=== PATIENT | male | born 1955 ===

== ENCOUNTER 2018-05-04 22:17 | Emergency (ER) | payer BC ==
--- NOTE | 2018-05-04 22:21 | PDOC ---
History of Present Illness - General History Source: Patient Exam Limitations: No Limitations - History of Present Illness Initial Comments: 05/04/18 22:52 The patient is a 63 year old male, with a significant PMH of diabetes, who presents to the emergency department complaining of vertigo that began tonight. The patient states he was eating at a restaurant when he suddenly felt dizzy and nauseous . He reports 1 episode of vomiting, non bilious and non bloody in nature. The patient notes vomit is exacerbated with positional changes, no alleviating factors indicated. He also mentions having a head cold a few days ago. The patient denies chest pain, shortness of breath,and headache. Denies fever, chills, diarrhea and constipation. Denies dysuria, frequency, urgency and hematuria. PAST MEDICAL HISTORY: no significant history PAST SURGICAL HISTORY: no significant history FAMILY HISTORY: no pertinent history SOCIAL HISTORY: Pt lives with family and is employed. MEDICATIONS: reviewed ALLERGIES: As per nursing notes Adult ROS General: No fevers or chills, no weakness, no weight loss HEENT: No change in vision. No sore throat,. No ear pain CardioVascular: No chest pain or shortness of breath Respiratory:No cough, or wheezing. Gastrointestinal: + nausea +vomiting. No diarrhea or constipation, No rectal bleeding Genitourinary: No dysuria, hematuria, or frequency Musculoskeletal: No joint or muscle pain or swelling Neurologic: +Vertigo. No headache, or loss of consciousness Psychiatric: nor depression Skin: No rashes or easy bruising Endocrine: no increased thirst or abnormal weight change Allergic: no skin or latex allergy All other systems reviewed and normal Adult Exam: General:+ Moderate distress and vomiting. Well-nourished well-developed individual. HEENT: Throat: Normal, tonsils normal, no erythema or exudate Neck: Supple, no meningeal signs, no lymphadenopathy Eyes::Pupils equal reactive and round, extraocular motion intact Chest: Nontender to palpation Cardiac: S1-S2 normal, regular rate and rhythm, no murmurs rubs or gallops Respiratory: Lungs clear to auscultation bilateral Abdomen: Soft, nondistended, normal bowel sounds, nontender to palpation diffusely Extremities: Warm, dry, no cyanosis, clubbing, or edema Skin: No rashes Neuro: Alert and oriented x3, nonfocal exam, grossly intact. Psych: Normal mood and affect <Cristopher,Aiswarya - Last Filed: 05/04/18 22:52> - General History Source: Patient Exam Limitations: No Limitations - History of Present Illness Initial Comments: 05/04/18 22:47 This is a 63-year-old male who comes in complaining of acute onset of vertigo after eating dinner this evening. Patient says he has had a recent upper respiratory/head cold. Patient denies any tinnitus. Patient denies any fevers or chills. Patient denies any abdominal pain or diarrhea. Patient denies history of similar symptoms in the past. Patient in moderate distress here in the emergency department secondary to vomiting and vertigo. Workup initiated including CBC, comp, EKG and cardiac workup, head CT. Patient given Zofran and meclizine. Will reassess and review results of workup 05/04/18 23:37 Patient's CAT scan was negative for any acute intracranial pathology He feels much better with the meclizine and Zofran discharged home will follow-up with his primary care doctor <Ron Way I - Last Filed: 05/04/18 23:39> - General Chief Complaint: Nausea/Vomiting Stated Complaint: VOMITING AFTER EATING/DIZZY Time Seen by Provider: 05/04/18 22:20 Past History <Jessica Nicholas - Last Filed: 05/04/18 22:52> <Ron Way I - Last Filed: 05/04/18 23:39> - Past Medical History Allergies/Adverse Reactions: Allergies Allergy/AdvReac Type Severity Reaction Status Date / Time No Known Allergies Allergy Verified 05/04/18 22:37 Home Medications: Ambulatory Orders Meclizine HCl [Antivert -] 12.5 mg PO QID #28 tablet 05/04/18 Ondansetron [Zofran *Odt*] 8 mg SL TID PRN #12 od.tablet 05/04/18 *Physical Exam - Vital Signs Last Vital Signs Temp Pulse Resp BP Pulse Ox 97.9 F 115 H 20 128/83 95 05/04/18 22:38 05/04/18 22:38 05/04/18 22:38 05/04/18 22:38 05/04/18 22:38 <Jessica Nicholas - Last Filed: 05/04/18 22:52> Moderate Sedation - Procedure Monitoring Vital Signs: Procedure Monitoring Vital Signs Temperature 97.9 F 05/04/18 22:38 Pulse Rate 115 H 05/04/18 22:38 Respiratory Rate 20 05/04/18 22:38 Blood Pressure 128/83 05/04/18 22:38 O2 Sat by Pulse Oximetry (%) 95 05/04/18 22:38 <Jessica Nicholas - Last Filed: 05/04/18 22:52> ED Treatment Course - Medications Given in the ED: ED Medications Discontinued Medications Generic Name Dose Route Start Last Admin Trade Name Freq PRN Reason Stop Dose Admin Ondansetron HCl 8 mg 05/04/18 22:33 05/04/18 22:42 Zofran Injection IVPB 05/04/18 22:34 8 mg ONCE ONE Administration <Jessica Nicholas - Last Filed: 05/04/18 22:52> - LABORATORY CBC & Chemistry Diagram: 05/04/18 22:38 05/04/18 22:38 <Ron [address] I - Last Filed: 05/04/18 23:39> *DC/Admit/Observation/Transfer - Attestations Scribe Attestion: 05/04/18 22:53 Documentation prepared by Jessica Nicholas, acting as medical assistant float for Ron Way MD. <Jessica Nicholas - Last Filed: 05/04/18 22:52> - Discharge Dispostion Decision to Admit order: No <Ron Way I - Last Filed: 05/04/18 23:39> Diagnosis at time of Disposition: Vertigo - Discharge Dispostion Disposition: HOME Condition at time of disposition: Stable - Prescriptions Prescriptions: Meclizine HCl [Antivert -] 12.5 mg PO QID #28 tablet Ondansetron [Zofran *Odt*] 8 mg SL TID PRN #12 od.tablet PRN Reason: Nausea - Patient Instructions Printed Discharge Instructions: DI for Vertigo Additional Instructions: For the nausea U can take Zofran 1 tablet as often as 3 times a day. The tablet dissolve under your tongue. For the spinning sensation/vertigo take meclizine 1 tablet every 4 hours if needed. Return to the emergency department immediately with ANY new, persistent or worsening symptoms. Continue any medications as previously prescribed by your physician. You should follow up with your primary doctor as soon as possible regarding today's emergency department visit. . Please make sure your doctor reviews the results of your emergency evaluation. Thank you for coming to the Emergency Department today for your care. It was a pleasure to see you today. Please note that your evaluation is INCOMPLETE until you follow-up with your doctor.
[2018-05-04] MEDS ORDERED: MECLIZINE HCL 25 MG TABLET (FP) ONE (22:33)
[2018-05-04] MEDS ORDERED: ONDANSETRON 4 MG/2 ML VIAL IVPB ONE (22:33)
[2018-05-04] MEDS ORDERED: SODIUM CHLORIDE 1,000 ML IV ONE (22:34)
[2018-05-04] MEDS ORDERED: MECLIZINE HCL 25 MG TABLET (FP) PO ONE (22:35)
[2018-05-04 22:41] VITALS: BP 128/83; PULSE 115; TEMP 97.9; BMI 27.8
[2018-05-04 23:21] LABS: BASO % 0.6 % (0-2.0); EOS % 0.9 % (0-4.5); HEMATOCRIT 42.1 % (35.4-49); HEMOGLOBIN 14.1 GM/dl (11.7-16.9); LYMPH % 43.1 % (8-40); MCH 30.4 pg (25.7-33.7); MCHC 33.6 g/dl (32.0-35.9); MEAN CELL VOLUME 90.4 fl (80-96); NEUT % 48.4 % (42.8-82.8); PLATELET COUNT 364 K/MM3 (134-434); RBC 4.66 M/mm3 (4.00-5.60); RDW 11.4 % (11.9-15.9); WHITE BLOOD COUNT 15.1 K/mm3 (4.0-10.8)
[2018-05-04 23:24] LABS: ALBUMIN 4.4 g/dl (3.4-5.0); ALK PHOS 46 U/L (45-117); ANION GAP 12 MMOL/L (8-16); BILIRUBIN,TOTAL 1.1 mg/dl (0.2-1); BLOOD UREA NITROGEN 17 mg/dl (7-18); CALCIUM 9.2 mg/dl (8.5-10); CHLORIDE 97 mmol/L (98-107); CO2 23 mmol/L (21-32); POTASSIUM 3.3 mmol/L (3.5-5.1); SGOT/AST 38 U/L (15-37); SGPT/ALT 38 U/L (13-61); SODIUM 132 mmol/L (136-145); TOT PROT 7.5 g/dl (6.4-8.2)
[2018-05-04 23:25] LABS: GLUCOSE,RANDOM 342 mg/dl (74-106)
[2018-05-04] MEDS ORDERED: INSULIN REGULAR HUMAN 100 UNITS/ML *VIAL IVPUSH ONE (23:28)
[2018-05-04] MEDS ORDERED: INSULIN REGULAR HUMAN 100 UNITS/ML *VIAL ONE (23:33)
--- NOTE | 2018-05-05 09:52 | EKG ---
Test Reason : Blood Pressure : / mmHG Vent. Rate : 109 BPM Atrial Rate : 109 BPM P-R Int : 196 ms QRS Dur : 094 ms QT Int : 352 ms P-R-T Axes : 048 -44 016 degrees QTc Int : 474 ms SINUS TACHYCARDIA LEFT AXIS DEVIATION INFERIOR INFARCT , AGE UNDETERMINED ABNORMAL ECG NO PREVIOUS ECGS AVAILABLE Confirmed by KILEY KENYON, MARGI ([id number]) on 05/05/2018 9:51:42 AM Referred By: DR GRIDER Confirmed By:MARGI CAO MD
== END 2018-05-04 23:54 | disposition home or self-care (01) ==
LOC: FER 22:17
PROC: 3E013VG Introduction of Insulin into Subcutaneous Tissue, Percutaneous Approach (ICD-10-PCS; principal; 2018-05-04)
PROC: 3E033GC Introduction of Other Therapeutic Substance into Peripheral Vein, Percutaneous Approach (ICD-10-PCS; 2018-05-04)
PROC: 3E0337Z Introduction of Electrolytic and Water Balance Substance into Peripheral Vein, Percutaneous Approach (ICD-10-PCS; 2018-05-04)
DX: R42 Dizziness and giddiness (principal); E11.9 Type 2 diabetes mellitus without complications
CPT/HCPCS: 36415; 70450-TC; 80053; 82550; 82962; 84484; 85025; 93005; 99282-25; J7030